=== PATIENT | female | born 1990 | race Caucasian/White ===

== ENCOUNTER 2019-08-10 08:44 | Emergency (ER) | payer OTHER, SELFPAY ==
[2019-08-10 08:56] VITALS: BP 104/61; PULSE 96; RESP 18; TEMP 36.4; O2SAT 100
[2019-08-10 09:18] LABS: Basophils Percent Auto 0.3 % (0.2-1.2); Eosinophils Percent Auto 0.4 % (0-4.4); Hematocrit 37.8 % (37.0-47.0); Hemoglobin 12.8 g/dL (12.0-15.0); Immature Granulocyte Absolute 0.02 K/mm3 (0.00-0.031); Immature Granulocyte Percent A 0.3 % (0-0.5); Lymphocytes Absolute Auto 1.01 K/mm3 (0.9-3.2); Lymphocytes Percent Auto 13.7 % (18.3-44.2); Mean Corpuscular HGB Conc 33.9 g/dl (32-36); Mean Corpuscular Hemoglobin 29.2 pg (26-34); Mean Corpuscular Volume 86.1 fl (80-100); Mean Platelet Volume 12.5 fl (7.4-10.4); Monocytes Absolute Auto 0.4 K/mm3 (0.1-0.6); Monocytes Percent Auto 5.2 % (2.6-8.5); Neutrophils Absolute Auto 5.9 K/mm3 (1.3-6.7); Neutrophils Percent Auto 80.1 % (45.5-73.1); Platelet Count Result 165 k/mm3 (150-375); Red Blood Count 4.39 M/mm3 (4.2-5.4); White Blood Count 7.4 K/mm3 (4.5-10.0)
[2019-08-10 09:22] LABS: Add Urine Microscopic? YES; Appearance Urine Clear (Clear); Bilirubin Urine Negative (Negative); Blood Urine Negative (Negative); Color Urine Straw (Yellow); Glucose Urine UA Negative (Negative); Ketones Urine Trace mg/dL (Negative); Leukocyte Esterase Ur Negative LEU/UL (Negative); Mucus Urine Rare /lpf; Nitrate Urine Negative (Negative); Protein Urine Negative (Negative); RBC Urine 0-2 /hpf (0-2); Specific Grav Ur 1.011 (1.001-1.035); Squamous Epithelial Cell Urine Few /hpf (Few); Urobilinogen Urine Negative mg/dL (<2.0); WBC Urine 0-3 /hpf
--- NOTE | 2019-08-10 09:36 | ED.NAVMDI ---
HPI - Nausea/Vomiting/Diarrhea General Chief complaint: Nausea/Vomiting/Diarrhea <Zari Barnes PA-C - Last Filed: 08/10/19 20:18> Stated complaint: N/V, dizzy <Zari Barnes PA-C - Last Filed: 08/10/19 20:18> Time Seen by Provider: 08/10/19 09:07 <DEE DEE Poon Last Filed: 08/10/19 20:18> Source: patient <Zari Barnes PA-C - Last Filed: 08/10/19 20:18> Mode of arrival: ambulatory <DEE DEE Poon Last Filed: 08/10/19 20:18> Limitations: no limitations <Zari Barnes PA-C - Last Filed: 08/10/19 20:18> History of Present Illness HPI Narrative: Patient presents with chief complaint of epigastric discomfort and dry heaving that began last night. Patient states she has had presented at the beginning of the year she came to the emergency department 07/15/2019 and had a lab work and a CT scan without abnormal findings with the same symptoms. Patient states she was discharged on famotidine and Zofran for a week and her symptoms resolved without complications. Patient states she has been fine over the past few weeks until her symptoms presented last night. Patient states that she suspect of viral illness as it was last time but she did not want to wait before being put back on the medications. Patient denies any changes in bowel movement, hematochezia, fever, chills, cough, urinary symptoms, intense abdominal pain. Patient reports feeling mild epigastric discomfort. Patient denies . <Zari Barnes PA-C - Last Filed: 08/10/19 20:18> Related Data Allergies/Adverse reactions: Allergies Allergy/AdvReac Type Severity Reaction Status Date / Time No Known Allergies Allergy Verified 07/15/19 22:42 <Zari Barnes PA-C - Last Filed: 08/10/19 20:18> Review of Systems Review of Systems: Narrative: CONSTITUTIONAL: Denies fever, chills, or sweats. EYES: Denies visual changes, redness, or discharge. ENT: Denies rhinorrhea, congestion, sore throat, or otalgia. CARDIOVASCULAR: Denies chest pain, palpitations, or edema. RESPIRATORY: Denies cough or dyspnea. GASTROINTESTINAL: Reports epigastric pain, nausea, vomiting, denies diarrhea. GENITOURINARY: Denies dysuria or hematuria. SKIN: Denies rash or itching. MUSCULOSKELETAL: Denies back pain, joint pain, or myalgia. NEUROLOGIC: Denies headache, numbness, dizziness, or weakness. PSYCHIATRIC: Denies anxiety or depression. <Zari Barnes PA-C - Last Filed: 08/10/19 20:18> [facility] Past Medical History Medical History: Medical History (Updated 08/11/19 @ 00:00 by Brian Bladn) Tubal ligation evaluation <Zari Barnes PA-C - Last Filed: 08/10/19 20:18> Surgical History Surgical History: Surgical History (Updated 07/15/19 @ 23:40 by Estefany Mcnamara) No pertinent past surgical history <Zari Barnes PA-C - Last Filed: 08/10/19 20:18> Social History Social History: Social History Smoking status: Never smoker Gender identity (if verbalized by the patient): Female <Zari Barnes PA-C - Last Filed: 08/10/19 20:18> Exam Narrative: Exam Narrative: GENERAL: Well-appearing, well-nourished, and in no acute distress. HEAD: Normocephalic, atraumatic. EYES: PERRLA and EOMI. ENT: Nares clear, no rhinorrhea or epistaxis. Mucous membranes moist. Oropharynx without tonsillar hypertrophy exudate or other lesions. Bilateral TMs pearly mayo nonbulging NECK: Supple. No adenopathy or masses. Range of motion intact without rigidity. CHEST: Clear to auscultation. No respiratory distress. No wheezes rales or rhonchi HEART: Regular rate and rhythm. No murmur heard. Normal peripheral pulses. ABDOMEN: Soft, mild epigastric tenderness without rigidity, guarding, rebound tenderness. nondistended, normal active bowel sounds. EXTREMITIES: Normal range of motion. No edema. SKIN: Warm, dry, no rash. NEURO: No focal deficits. Alert and oriented x3. PSYCH: No
[2019-08-10 09:55] LABS: Alanine Aminotransferase 14 U/L (4-35); Albumin Level 4.6 g/dL (3.5-5.1); Alkaline Phosphatase 83 U/L (38-126); Aspartate Amino Transferase 22 U/L (14-36); Bilirubin,Total 0.4 mg/dL (0.2-1.3); Blood Urea Nitrogen 13 mg/dL (7-17); Calcium 9.2 mg/dL (8.4-10.2); Carbon Dioxide 22 mmol/L (22-30); Chloride 107 mmol/L (98-107); Estimated CRCL calculation 123 ml/min; Estimated Glomerular Filt Rate > 60; Glucose 92 mg/dL (65-105); Lipase 156 U/L (23-300); Potassium 3.8 mmol/L (3.4-5.0); Sodium 138 mmol/L (137-145)
[2019-08-10] MEDS: SODIUM CHLORIDE 0.9% IV 500 ML 999 ML IV CONT (09:59)
[2019-08-10] MEDS: ONDANSETRON INJ 4 MG/2 ML VIAL IV PUSH (10:00)
[2019-08-10] MEDS: FAMOTIDINE 20 MG/2 ML VIAL IV PUSH (10:00)
[2019-08-10] MEDS: PROCHLORPERAZINE EDISYLATE 10 MG/2 ML VIAL IV PUSH (10:34)
--- NOTE | 2019-08-10 10:37 | ECG_ITS ---
Measurements Intervals [place] Rate: 106 P: -1 UT: 136 QRS: 13 QRSD: 93 T: 56 QT: 355 QTc: 471 Interpretive Statements SINUS TACHYCARDIA POSSIBLE LEFT ATRIAL ENLARGEMENT INCOMPLETE RIGHT BUNDLE BRANCH BLOCK BORDERLINE ST-T WAVE ABNORMALITY- ANTEROLAT/LAT LEADS BASELINE ARTIFACT- I, II, III, AVR, AVL, AVF ABNORMAL ECG Electronically Signed On 08-10-2019 11:38:12 [employer] ASSIST[employer] by Gildardo Todd D.O.
--- NOTE | 2019-08-10 10:39 | PC.NURSE ---
spoke with MARY CARMEN lebron after coming out of pt room where she is now complaining of medial upper abd pain, feels like my stomach is about to burst, and has had increased n/v and has hives on her upper chest. MARY CARMEN lebron states that she wants a stat EKG and will place order for benadryl IV and scans.
[2019-08-10 10:40] VITALS: BP 116/103; PULSE 103; RESP 18; O2SAT 100
[2019-08-10 11:51] LABS: Troponin I < 0.012 ng/mL (0.000-0.034)
== END 2019-08-10 11:30 | disposition left against medical advice (07) ==
PROVIDERS: Physician Assistant; Emergency Provider Emergency Medicine
DX: R10.13 Epigastric pain (principal); R11.0 Nausea; R00.0 Tachycardia, unspecified; I45.10 Unspecified right bundle-branch block; R94.31 Abnormal electrocardiogram [ECG] [EKG]
CPT/HCPCS: 36415; 80053; 81001; 81025; 83690; 84484; 85025; 93005; 96361; 96374; 96375; 99284; J0780; J1200; J2405; J7040